=== PATIENT | male | born 1995 | race Caucasian/White ===

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

== ENCOUNTER 2017-02-25 11:32 | Inpatient (IN) | payer BC, OTHER ==
[~2017-02-25] VITALS: Ht 180.3 cm; Wt 94.6 kg
[~2017-02-25 11:32] MED LIST changes: -AMOX875T PO; +FLEEENE3 RECTAL; +MAGNSOL2 PO
[2017-02-25 14:40] LABS: AUTOMATED NEUTROPHIL # 5.4 TH/MM3 (1.8-7.7); BASOPHIL % 0.4 % (0.0-2.0); EOSINOPHIL # 0.1 TH/MM3 (0-0.4); EOSINOPHIL % 0.9 % (0.0-4.0); HEMATOCRIT 41.1 % (39.0-51.0); HEMO FLAGS DIFF FINAL; LYMPH % 21.4 % (9.0-44.0); LYMPHOCYTE # 1.6 TH/MM3 (1.0-4.8); MEAN CELL VOLUME 88.4 FL (80.0-100.0); MEAN CORPUSCULAR HEMOGLOBIN 29.8 PG (27.0-34.0); MEAN CORPUSCULAR HGB CONC 33.7 % (32.0-36.0); MONO % 6.4 % (0.0-8.0); NEUT % 70.9 % (16.0-70.0); PLATELET COUNT 283 TH/MM3 (150-450); RED BLOOD COUNT 4.65 MIL/MM3 (4.50-5.90); RED CELL DISTRIBUTION WIDTH 14.5 % (11.6-17.2); WHITE BLOOD COUNT 7.6 TH/MM3 (4.0-11.0)
[2017-02-25 14:55] VITALS: BP 134/74; PULSE 86; RESP 20; TEMP 99.2
[2017-02-25 15:03] LABS: ALT (GPT) 30 U/L (9-52); ANION GAP 5 MEQ/L (5-15); AST (GOT) 14 U/L (15-39); BLOOD UREA NITROGEN 17 MG/DL (7-18); CHLORIDE 106 MEQ/L (98-107); GLOMERULAR FILTRATION RATE 125 ML/MIN (>89); POTASSIUM 4.2 MEQ/L (3.5-5.1); SODIUM (NA) 139 MEQ/L (136-145)
[2017-02-25 15:05] LABS: ALKALINE PHOSPHATASE 91 U/L (45-117); TOTAL BILIRUBIN ADULT 0.2 MG/DL (0.2-1.0)
[2017-02-25 15:06] LABS: ALCOHOL LESS THAN 3 MG/DL (0-5)
--- NOTE | 2017-02-25 15:08 | PD ---
HPI Chief Complaint: Psychiatric Symptoms Time Seen by Provider: 13:28 Travel History International Travel<30 days: No Contact w/Intl Traveler<30days: No Traveled to known affect area: No History of Present Illness HPI 21-year-old male that presents to the ED for evaluation of Smith act. Patient was Smith acted by police for trying to kill a dog. Apparently patient is an adult with a chainsaw. Patient apparently has been doing this before and heart the neck of another dog. Police was called by family who were concerned. Patient states that he has a history of anxiety but per Smith act he also has a history of bipolar. He apparently isn't taking his medications. Patient also has a history of insomnia. He does state that he feels depressed and is mainly because he cannot sleep. She denies any drugs or alcohol. He does take pain meds for his back secondary to an injury from lifting. He denies any chest or shortness of breath. Other medical issues. No allergies to medication. States that the symptoms have worsened because of the insomnia. PFSH Past Medical History Asthma: Yes Diminished Hearing: No Musculoskeletal: Yes (Back pain ) Immunizations Current: Yes ?: Not Past Surgical History Other Surgery: Yes (Cauterization of the R nare, undescended testicle surgery ) Social History Alcohol Use: No Tobacco Use: No Substance Use: No Allergies-Medications (Allergen,Severity, Reaction): Coded Allergies: No Known Allergies (Unverified , 06/21/16) Reported Meds & Prescriptions Reported Meds & Active Scripts Active Fleet Enema Rectal (Sodium Phosphates Rectal) 7-19 Gm/118 Ml Enem 118 Ml RECTAL DAILY PRN Magnesium Citrate Liq (Magnesium Citrate) 300 Ml Liq 300 Ml PO ONCE Review of Systems Except as stated in HPI: all other systems reviewed are Neg Physical Exam Narrative GENERAL: SKIN: Warm and dry. HEAD: Atraumatic. Normocephalic. EYES: Pupils equal and round. No scleral icterus. No injection or drainage. ENT: No nasal bleeding or discharge. Mucous membranes pink and moist. Tongue is midline. No uvula deviation. NECK: Trachea midline. No JVD. CARDIOVASCULAR: Regular rate and rhythm. No murmurs, S3, S4. RESPIRATORY: No accessory muscle use. Clear to auscultation. Breath sounds equal bilaterally. GASTROINTESTINAL: Abdomen soft, non-tender, nondistended. Hepatic and splenic margins not palpable. MUSCULOSKELETAL: Extremities without clubbing, cyanosis, or edema. No obvious deformities. Full range of motion of the upper and lower extremities bilaterally. 2+ pulses bilaterally. NEUROLOGICAL: Awake and alert. No obvious cranial nerve deficits. Motor grossly within normal limits. Five out of 5 muscle strength in the arms and legs. Normal speech. PSYCHIATRIC: Appropriate mood and affect; insight and judgment normal. Data Data Orders Orders Complete Blood Count With Diff (02/25/17 13:22) Comprehensive Metabolic Panel (02/25/17 13:22) Psych Screen (02/25/17 13:22) Drug Screen, Random Urine (02/25/17 13:22) Alcohol (Ethanol) (02/25/17 13:22) Salicylates (Aspirin) (02/25/17 13:22) Tylenol (Acetaminophen) (02/25/17 13:22) Labs Laboratory Tests Test 02/25/17 14:17 02/25/17 14:35 White Blood Count 7.6 TH/MM3 Red Blood Count 4.65 MIL/MM3 Hemoglobin 13.9 GM/DL Hematocrit 41.1 % Mean Corpuscular Volume 88.4 FL Mean Corpuscular Hemoglobin 29.8 PG Mean Corpuscular Hemoglobin Concent 33.7 % Red Cell Distribution Width 14.5 % Platelet Count 283 TH/MM3 Mean Platelet Volume 7.3 FL Neutrophils (%) (Auto) 70.9 % Lymphocytes (%) (Auto) 21.4 % Monocytes (%) (Auto) 6.4 % Eosinophils (%) (Auto) 0.9 % Basophils (%) (Auto) 0.4 % Neutrophils # (Auto) 5.4 TH/MM3 Lymphocytes # (Auto) 1.6 TH/MM3 Monocytes # (Auto) 0.5 TH/MM3 Eosinophils # (Auto) 0.1 TH/MM3 Basophils # (Auto) 0.0 TH/MM3 CBC Comment DIFF FINAL Differential Comment MDM Medical Decision Making Medical Screen Exam Complete: Yes Emergency Medical Condition: Yes Medical Record Reviewed: Yes Interpretation(s) CBC & BMP Diagram 02/25/17 14:17 Total Protein 7.7, Albumin 3.9, Calcium Level 9.4, Alkaline Phosphatase 91, Aspartate Amino Transf (AST/SGOT) 14 L, Alanine Aminotransferase (ALT/SGPT) 30, Total Bilirubin 0.2 Differential Diagnosis Depression versus suicidal ideation versus anxiety versus adjustment disorder versus mood disorder versus bipolar disorder versus schizophrenia versus paranoid disorder versus psychosis versus substance abuse versus alcohol abuse versus alcohol induced psychosis versus homicidality addition versus cutting versus personality disorder Narrative Course 21-year-old male that presents to the ED for evaluation of Smith act. Patient was properly examined and was found to have signs and symptoms consistent psychiatric illness. No sign of acute medical distress. Labs were ordered. Patient will be medically clear. Okay to be seen by psych. Mental health screening was discussed with the patient. Diagnosis Primary Impression: Bipolar 1 disorder Silas Henderson Feb 25, 2017 15:08
[2017-02-25 15:10] LABS: ACETAMINOPHEN LESS THAN 2.0 MCG/ML (10.0-30.0)
[2017-02-25 16:12] VITALS: BP 143/72; PULSE 90; RESP 16; TEMP 99.3; O2SAT 98
[2017-02-25] MEDS ORDERED: DIVA250T3 PO (16:51)
[2017-02-25] MEDS ORDERED: DIVA500T3 PO (16:51)
[2017-02-25] MEDS ORDERED: HYDR1CAP30 PO (16:52)
[2017-02-25] MEDS ORDERED: OMEP20TA93 PO (16:53)
[2017-02-25] MEDS ORDERED: SERO50TA PO (16:53)
[2017-02-25 18:05] VITALS: BP 134/69; PULSE 77; RESP 20
[2017-02-25 19:35] VITALS: BP 137/67; PULSE 71; RESP 16; TEMP 98.1; O2SAT 99
[2017-02-25] MEDS ORDERED: LORazepam 1 MG TAB PO PRN (20:00)
[2017-02-25] MEDS ORDERED: diphenhydrAMINE HCL 50 MG/ML VIAL IM PRN (20:00)
[2017-02-25] MEDS ORDERED: ALUMINUM/MAGNESIUM/SIMETH 30 ML CUP PO PRN (20:00)
[2017-02-25] MEDS ORDERED: diphenhydrAMINE HCL 50 MG CAP PO PRN (20:00)
[2017-02-25] MEDS ORDERED: hydrOXYzine HCL 50 MG TAB PO PRN (20:00)
[2017-02-25] MEDS ORDERED: diphenhydrAMINE HCL 50 MG/ML VIAL - HS PRN IM (20:00)
[2017-02-25] MEDS ORDERED: diphenhydrAMINE HCL 50 MG CAP - HS PRN PO (20:00)
[2017-02-25] MEDS ORDERED: LORazepam 2 MG/ML VIAL IM PRN (20:00)
[2017-02-25] MEDS ORDERED: MAGNESIUM HYDROXIDE SUSP 30 ML CUP PO PRN (20:00)
[2017-02-25] MEDS ORDERED: ACETAMINOPHEN 325 MG TAB PO PRN (20:00)
[2017-02-25] MEDS: DIVALPROEX SODIUM E.R. 250 MG TAB PO SCH (21:09)
[2017-02-25] MEDS: QUEtiapine FUMARATE 25 MG TAB PO SCH (21:09)
[2017-02-26 06:04] VITALS: BP 110/62; PULSE 82; RESP 18; TEMP 97.6; O2SAT 98
[2017-02-26] MEDS: DIVALPROEX SODIUM E.R. 500 MG TAB PO SCH (09:00)
[2017-02-26] MEDS ORDERED: INFLUENZA VIRUS VACCINE (QUADRIVALENT) 0.5 ML SYR IM ONE (09:00)
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
[2017-02-26 12:08] LABS: ANION GAP 6 MEQ/L (5-15); BICARBONATE 29.5 MEQ/L (21.0-32.0); BLOOD UREA NITROGEN 19 MG/DL (7-18); CHLORIDE 104 MEQ/L (98-107); GLOMERULAR FILTRATION RATE 116 ML/MIN (>89); POTASSIUM 3.9 MEQ/L (3.5-5.1); SODIUM (NA) 139 MEQ/L (136-145)
[2017-02-26 12:10] LABS: HDL CHOLESTEROL 42.9 MG/DL (40.0-60.0); LDL CHOLESTEROL 76 MG/DL (0-99)
[2017-02-26 13:07] LABS: HEMOGLOBIN A1a 1.5 %; HEMOGLOBIN A1b 0.8 %; HEMOGLOBIN Ao 85.7 %; HEMOGLOBIN F 0.9 %; HEMOGLOBIN LA1C 1.9 %; HEMOGLOBIN P3 3.4 %
[2017-02-26] MEDS: DIVALPROEX SODIUM E.R. 250 MG TAB PO SCH (20:51)
[2017-02-26] MEDS: QUEtiapine FUMARATE 25 MG TAB PO SCH (20:51)
[2017-02-27 06:26] VITALS: BP 122/66; PULSE 91; RESP 16; TEMP 97.9; O2SAT 98
[2017-02-27] MEDS: DIVALPROEX SODIUM E.R. 500 MG TAB PO SCH (10:28)
--- NOTE | 2017-02-27 12:19 | EKG ---
Date Performed: 02/26/2017 Time Performed: 12:53:38 PTAGE: 21 years EKG: Sinus rhythm Within normal limits BORDERLINE ECG NO PREVIOUS TRACING DOCTOR: Fede Lopez Interpretating Date/Time 02/27/2017 12:18:35
--- NOTE | 2017-02-27 16:47 | HHI.PYPN ---
Subjective Remarks Patient was seen and case discussed with nursing. Patient gives a convoluted story involving arguments with his mother and threats to kill dogs and this katana sword. Patient denies irritable mood or increased energy in the past week. He does minimizes symptoms. During the interview there is no pressured speech or flight of ideas. He is logical and coherent while presenting his side of the story. He had a visit from his family today. Denies suicidal homicidal ideation intent or plan. Tolerating medications well. Mental Status Examination Appearance: Disheveled Consciousness: Alert Orientation: Person, Place, Date/Time Motor Activity: Normal gait Speech: Unremarkable Language: Adequate Fund of Knowledge: Adequate Attention and Concentration: Adequate Memory: Unremarkable Mood: Anxious, Other ("okay") Affect: Other (restricted) Thought Process & Associations: Linear Thought Content: Appropriate Hallucination Type: None Delusion Type: None Suicidal Ideation: No Suicidal Plan: No Suicidal Intention: No Homicidal Ideation: No Homicidal Plan: No Homicidal Intention: No Insight: Poor Judgment: Poor Results Labs Test 02/27/17 08:00 Valproic Acid (Depakene) Level 90 MCG/ML Vitals/IOs Vital Signs Date Time Temp Pulse Resp B/P (MAP) Pulse Ox O2 Delivery O2 Flow Rate FiO2 02/27/17 06:26 97.9 91 16 122/66 (84) 98 02/25/17 18:05 Room Air Assessment & Plan Problem List: (1) Bipolar 1 disorder ICD Codes: F31.9 - Bipolar disorder, unspecified Status: Acute Assessment & Plan Continue current treatment plan Justification for Cont. Inpt. Patient would decompensate in a less restrictive setting Kaveh Marsh DO Feb 27, 2017 16:46
[2017-02-27 18:01] VITALS: BP 157/81; PULSE 61; RESP 17; TEMP 97.8; O2SAT 99
[2017-02-27] MEDS: QUEtiapine FUMARATE 25 MG TAB PO SCH (21:09)
[2017-02-27] MEDS: DIVALPROEX SODIUM E.R. 250 MG TAB PO SCH (21:10)
[2017-02-28 06:00] VITALS: BP 114/73; PULSE 73; RESP 18; TEMP 97.7; O2SAT 98
[2017-02-28] MEDS: DIVALPROEX SODIUM E.R. 500 MG TAB PO SCH (09:44)
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
--- NOTE | 2017-02-28 11:46 | PD.TTN ---
Patient Problems 1. Discharge planning 2. Medication compliance 3. Knowledge deficit 4. Lack of coping skills Progress Toward Goals Provider Present: Dr. Conor Gambino Provider Input: Dr. Gambino's treatment team met to discuss patient's treatment plan, discharge, and medication. Patient presents well. Patient will be discharged to home to parents. Patient will follow up with Dr. Goodson Nurse(s) Input: Patient's Nurse Cruz reports patient down plays incident. Is guarded, medication compliant, no behaviorial problem on unit Psychiatric Counselors Present: PAULO CullenEdison Psych Therapist Input: Patient presents pleasant cooperative affect blunted. Patient's speech is clear, pressured excessive. Patient made good eye contact. Patient denies suicidal and homicial ideation. Patient does not present with internal stimulation or with any delusional thoughts. Patient has a follow up appointment with his psychiatrist Dr. Goodson March 04, 2017 at 11:30 Group Spec/RT/OT/ENGEL Present: Abner Ragsdale OT Group Spec/RT/OT/ENGEL Input: Patient does not attend Orquidea ChoiEdison Feb 28, 2017 11:46
== END 2017-02-28 13:30 | disposition home or self-care (01) | DRG 882 ==
LOC: NEPJ 11:32 → NEDA 19:03 → H270 19:34 → H260 02-27 14:00
PROVIDERS: ADMIT Psychiatry & Neurology Psychiatry; ATTEND Psychiatry & Neurology Psychiatry
DX: F43.25 Adjustment disorder with mixed disturbance of emotions and conduct (principal); F31.9 Bipolar disorder, unspecified; F41.9 Anxiety disorder, unspecified; G47.9 Sleep disorder, unspecified; Z62.810 Personal history of physical and sexual abuse in childhood; J45.909 Unspecified asthma, uncomplicated; M54.9 Dorsalgia, unspecified; Z23 Encounter for immunization
CPT/HCPCS: 80048; 80053; 80061; 80164; 80307; 83036; 85025; 90686; 93005; 99285; Q2038

== ENCOUNTER 2017-09-08 03:51 | Emergency (ER) | payer BC, OTHER ==
[~2017-09-08] VITALS: Ht 180.3 cm; Wt 103.3 kg
[~2017-09-08 03:51] MED LIST changes: +DIVA250T3 PO; +DIVA500T3 PO; -FLEEENE3 RECTAL; +HYDR1CAP30 PO; -MAGNSOL2 PO; +OMEP20TA93 PO; +SERO50TA PO
[2017-09-08 03:56] VITALS: BP 131/64; PULSE 117; RESP 20; TEMP 100.5; O2SAT 96
[2017-09-08] MEDS ORDERED: SERT-129 PO (04:03)
[2017-09-08] MEDS ORDERED: IBUPROFEN 800 MG TAB PO ONE (04:15)
--- NOTE | 2017-09-08 04:15 | PD ---
HPI Chief Complaint: ENT Complaint Time Seen by Provider: 04:08 Travel History International Travel<30 days: No Contact w/Intl Traveler<30days: No Traveled to known affect area: No History of Present Illness HPI 21-year-old male presents to the emergency department by private transportation the care of his mother for evaluation of sore throat since when. Patient has had fever without chills. No nausea vomiting abdominal pain or diarrhea. Patient's had some intermittent cough. Patient is taken a dose of NyQuil at 2: 30 AM as well as last evening prior to going to bed dose of NyQuil and patient was noted to still have fever of 102.8F at home therefore the mother became concerned but the patient to the emergency room for evaluation. Patient has history of chronic sinus congestion after injury sustained during martial arts. Patient has had episodes of epistaxis in the past but nothing reported as far as epistaxis at this time. Patient does continue complain of nasal congestion. No report of ear pain or neck pain. History of asthma without exacerbation. Patient is unable to identify exacerbating or alleviating factors. PFSH Past Medical History Narrative Medical Asthma anxiety immunizations current; sinus surgery testicle surgery; no tobacco use; nursing notes reviewed Arthritis: No Asthma: Yes (HX OF ASTHMA) Autoimmune Disease: No Anxiety: Yes Depression: No Heart Rhythm Problems: No Cancer: No Cardiovascular Problems: No High Cholesterol: No Chemotherapy: No Chest Pain: No Congestive Heart Failure: No COPD: No Cerebrovascular Accident: No Diabetes: No Diminished Hearing: No Endocrine: No Gastrointestinal Disorders: No GERD: No Genitourinary: No Headaches: No Hiatal Hernia: No Heparin Induced Thrombocytopen: No Hypertension: No Immune Disorder: No Implanted Vascular Access Dvce: No Kidney Stones: No Musculoskeletal: Yes (Back pain ) Neurologic: No Psychiatric: Yes Reproductive: No Respiratory: Yes (CHILDHOOD ASTHMA) Immunizations Current: Yes Migraines: No Radiation Therapy: No Renal Failure: No Seizures: No Sickle Cell Disease: No Sleep Apnea: No Thyroid Disease: No Ulcer: No Tetanus Vaccination: Unknown Influenza Vaccination: Yes Past Surgical History AICD: No Arteriovenous Shunt: No Insulin Pump: No Joint Replacement: No Pacemaker: No Other Surgery: Yes (Cauterization of the R nare, undescended testicle surgery ) Social History Alcohol Use: No Tobacco Use: No Substance Use: No (Pt denies. ) Allergies-Medications (Allergen,Severity, Reaction): Coded Allergies: No Known Allergies (Unverified Allergy, Unknown, 09/08/17) Per [facility] [phone]. Reported Meds & Prescriptions Reported Meds & Active Scripts Active Cefuroxime (Cefuroxime Axetil) 500 Mg Tab 500 Mg PO BID 10 Days Reported Sertraline (Sertraline HCl) 100 Mg Tab 100 Mg PO DAILY Review of Systems Except as stated in HPI: all other systems reviewed are Neg General / Constitutional: Positive: Fever, No: Chills HENT: Positive: Sore Throat, Congestion Cardiovascular: No: Chest Pain or Discomfort Respiratory: No: Shortness of Breath Gastrointestinal: No: Vomiting Genitourinary: No: Flank Pain Musculoskeletal: No: Myalgias, Arthralgias Skin: No Rash Neurologic: No: Weakness Psychiatric: No: Anxiety Hematologic/Lymphatic: No: Lymph Node Enlargement Physical Exam Narrative GENERAL: Well-developed well-nourished male no acute distress or respiratory distress; triage vital signs T: 100.5F with heart rate of 117 within normal range respiratory rate blood pressure and O2 saturation on room air; no stridor no hoarseness SKIN: Warm and dry. HEAD: Normocephalic. EYES: No scleral icterus. No injection or drainage. ENT: Mucous membranes moist airways patent positive tonsillar edema with exudative change no soft palatal soft tissue swelling NECK: Supple, trachea midline. No JVD or lymphadenopathy. CARDIOVASCULAR: Regular rate and rhythm without murmurs, gallops, or rubs. RESPIRATORY: Breath sounds equal bilaterally. No accessory muscle use. GASTROINTESTINAL: Abdomen soft, non-tender, nondistended. MUSCULOSKELETAL: No cyanosis, or edema. BACK: Nontender without obvious deformity. No CVA tenderness. Data Data Last Documented VS Vital Signs Date Time Temp Pulse Resp B/P (MAP) Pulse Ox O2 Delivery O2 Flow Rate FiO2 09/08/17 03:56 100.5 117 20 131/64 (86) 96 Orders Orders Group A Rapid Strep Screen (09/08/17 04:08) Ibuprofen (Motrin) (09/08/17 04:15) Strep Culture (Group A) (09/08/17 04:10) Ed Discharge Order (09/08/17 04:39) Cefuroxime (Ceftin) (09/08/17 04:45) MDM Medical Decision Making Medical Screen Exam Complete: Yes Emergency Medical Condition: Yes Medical Record Reviewed: Yes Interpretation(s) RSA: negative Differential Diagnosis Tonsillitis sinusitis peritonsillar abscess retropharyngeal abscess viral syndrome mononucleosis Narrative Course Patient given weight-based ibuprofen 800 mg 1 dose along with specimen collection for rapid strep RSA negative Patient given first dose of antibiotic in the ED; Ceftin 500 mg x 1 dose Diagnosis Primary Impression: Acute tonsillitis Referrals: Primary Care Physician 1 day Patient Instructions: General Instructions Additional Instructions: Increase fluid hydration Monitor temperature every 4 hours with thermometer and take ibuprofen 800 mg as often as every 8 hours for fever 100.4F or greater Complete course of antibiotic as prescribed May use over the counter Afrin nasal decongestant per package directions for nasal/sinus congestion For symptom relief use [id number] lozenges or Chloraseptic spray or warm salt water gargles Follow-up with your primary care provider call office in a.m. to schedule follow -up appointment Return to the emergency department for any concerns or change in condition Med/Other Pt SpecificInfo: Prescription(s) given Scripts Cefuroxime (Cefuroxime) 500 Mg Tab 500 MG PO BID for Infection for 10 Days, #20 TAB 0 Refills Prov: Miguelina Manriquez MD 09/08/17 Disposition: 01 DISCHARGE HOME Condition: Stable Miguelina Manriquez MD Sep 08, 2017 04:15
[2017-09-08] MEDS ORDERED: CEFU1TAB20 PO (04:38)
[2017-09-08] MEDS ORDERED: CEFUROXIME AXETIL 500 MG TAB PO ONE (04:45)
[2017-09-08 04:53] VITALS: BP 122/66; PULSE 92; RESP 18; O2SAT 98
== END 2017-09-08 05:05 | disposition home or self-care (01) ==
LOC: PHED 03:51
DX: J03.90 Acute tonsillitis, unspecified (principal); R50.9 Fever, unspecified; R05 Cough; R09.81 Nasal congestion; Z87.09 Personal history of other diseases of the respiratory system; Z86.59 Personal history of other mental and behavioral disorders; Z87.39 Personal history of other diseases of the musculoskeletal system and connective tissue
CPT/HCPCS: 87081; 87880; 99283